=== PATIENT | male | born 1960 | race Caucasian/White ===

== ENCOUNTER 2022-11-04 12:25 | Emergency (ER) | payer OTHER ==
[~2022-11-04] VITALS: Ht 170.2 cm; Wt 105.0 kg
[2022-11-04 12:26] VITALS: TEMP 98.9; O2SAT 99
[2022-11-04] MEDS ORDERED: KETOROLAC 30MG/ML VIAL IM ONE (14:30)
[2022-11-04] MEDS ORDERED: ACETAMINOPHEN 325MG TABLET PO ONE (14:30)
[2022-11-04] MEDS ORDERED: PHEN1SUP42 RC ×3 (14:45→17:07)
[2022-11-04] MEDS ORDERED: POLY17PO3 MT ×2 (14:45)
[2022-11-04] MEDS ORDERED: NAPR-681 MT ×3 (14:45→17:07)
[2022-11-04] MEDS ORDERED: LIDOCAINE HCL/PF 1% 10 MG/ML 5ML VIAL INFIL ONE ×2 (15:00→15:30)
[2022-11-04 15:26] VITALS: BP 139/108; PULSE 104; RESP 16
[2022-11-04] MEDS ORDERED: POLY17PO43 MT (17:07)
== END 2022-11-04 15:55 | disposition home or self-care (01) ==
LOC: ER 13:09
DX: K64.9 Unspecified hemorrhoids (principal)
CPT/HCPCS: 99283; 96372; J1885; J3490